=== PATIENT | male | born 1955 | race Caucasian/White ===

== ENCOUNTER 2020-03-18 07:41 | Outpatient (REF) | payer OTHER, SELFPAY | END 2020-03-18 07:42 | disposition home or self-care (01) | LOC: HO.SCI 07:41 | PROVIDERS: Visit Provider Nurse Practitioner | DX: Z13.89 Encounter for screening for other disorder (principal) ==

== ENCOUNTER 2020-04-08 09:18 | Outpatient (REF) | payer OTHER, SELFPAY ==
[2020-04-08 12:02] LABS: Basophils Percent Auto 0.5 % (0-2); Eosinophils Absolute Auto 0.2 X10*3/uL (0.0-0.4); Hematocrit 44.2 % (42-52); Hemoglobin 15.3 g/dl (14.0-18.0); Imm Gran Abs Auto 0.02 X10*3/uL (0.00-0.03); Imm Gran Pct Auto 0.3 % (0.0-0.4); Lymphocytes Absolute Auto 1.7 X10*3/uL (1.2-4.9); Mean Corpuscular HGB Conc 34.6 g/dl (31.0-36.0); Mean Corpuscular Volume 83.7 fL (80-98); Monocytes Absolute Auto 0.6 X10*3/uL (0.1-1.2); Monocytes Percent Auto 7.2 % (2-11); Neutrophils Absolute Auto 5.4 X10*3/uL (2.0-8.3); Platelet Count 348 X10*3/uL (160-400); Red Blood Count 5.28 X10*6/uL (4.60-5.80); Red Cell Distribution Width 13.2 % (11.0-16.0); White Blood Count 7.9 X10*3/uL (4.8-10.8)
[2020-04-08 12:04] LABS: MANUAL DIFF FLAG NO
[2020-04-08 13:06] LABS: Erythrocyte Sedimentation Rate 6 MM/HR (0-15)
[2020-04-13 23:16] LABS: Asperg fumigatus Precip Abs NEGATIVE (NEGATIVE); Micropoly faeni Abs NEGATIVE (NEGATIVE); Pigeon serum Abs NEGATIVE (NEGATIVE); Saccharo pora viridis Abs NEGATIVE (NEGATIVE); Thermo candidus Abs NEGATIVE (NEGATIVE); Thermoa vulgaris #1 NEGATIVE (NEGATIVE)
== END 2020-04-08 09:19 | disposition home or self-care (01) ==
LOC: HO.LAB 09:18
PROVIDERS: Visit Provider Hospitalist
DX: J45.40 Moderate persistent asthma, uncomplicated (principal); R06.00 Dyspnea, unspecified; R05 Cough; J30.9 Allergic rhinitis, unspecified
CPT/HCPCS: 36415; 82785; 85025; 85652; 86003; 86331; 86606; 86609

== ENCOUNTER 2020-04-09 09:13 | Outpatient (REF) | payer OTHER, SELFPAY ==
--- NOTE | 2020-04-09 09:30 | EMG_ITS ---
HISTORY OF PRESENT ILLNESS: This is a 65-year-old man with right lower extremity weakness for the last 7 weeks with a footdrop on walking. He has no back pain and no radicular pain. PHYSICAL EXAMINATION: On examination, he is alert and oriented with normal intellectual functions. He has moderate weakness of tibialis anterior and peroneus longus as well as greater weakness in the EDB and EHL. Reflexes symmetrical. IMPRESSION: Peroneal nerve palsy. Rule out lumbar radiculopathy. Nerve conduction EMG study: Mild to moderate compression palsy of the right peroneal nerve of neck of the fibula with moderate axonal loss. 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 MD JOHN Randhawa/ANTHONY / [id number]
== END 2020-04-09 09:14 | disposition home or self-care (01) ==
LOC: HO.NEURO 09:13
PROVIDERS: Visit Provider Nurse Practitioner
DX: M21.371 Foot drop, right foot (principal)
CPT/HCPCS: 95860; 95886; 95910

== ENCOUNTER → 2020-05-01 09:46 | Outpatient (BNVA) | payer OTHER, SELFPAY | PROVIDERS: Visit Provider Hospitalist | DX: Z76.89 Persons encountering health services in other specified circumstances (principal) ==

== ENCOUNTER 2020-10-09 11:04 | Outpatient (REF) | payer OTHER, SELFPAY ==
--- NOTE | ~2020-10-09 | XR_ITS ---
EXAMINATION: XR CHEST 2 VIEWS CLINICAL INFORMATION: Dyspnea. COMPARISON: None. TECHNIQUE: Frontal and lateral views of the chest were obtained. FINDINGS: The heart, great vessels, pulmonary vasculature and mediastinum are normal. The lungs show no focal infiltrate, effusion or pneumothorax. There is no acute osseous abnormality. There is multi-level thoracolumbar spondylosis. Orthopedic anchors are seen applied to the right humeral head. XR/XR chest 2V IMPRESSION: No active cardiopulmonary disease.
== END 2020-10-09 11:05 | disposition home or self-care (01) ==
LOC: HO.XRAY 11:04
PROVIDERS: Visit Provider Hospitalist
DX: R06.00 Dyspnea, unspecified (principal)
CPT/HCPCS: 71046

== ENCOUNTER → 2020-10-30 10:26 | Outpatient (BNVA) | payer OTHER, SELFPAY | PROVIDERS: Visit Provider Hospitalist ==

== ENCOUNTER 2021-09-04 15:58 | Outpatient (REF) | payer OTHER, SELFPAY ==
--- NOTE | 2021-09-04 17:08 | PFT_ITS ---
No test because patient was not able to perform any significant maneuvers. MD IZABELLA Bowman/ANTHONY / [id number]
== END 2021-09-04 15:59 | disposition home or self-care (01) ==
LOC: HO.RESP 15:58
PROVIDERS: PCP Internal Medicine; Visit Provider Hospitalist
DX: Z13.89 Encounter for screening for other disorder (principal)

== ENCOUNTER 2023-09-23 13:06 | Outpatient (AMB) | payer OTHER, SELFPAY ==
--- NOTE | 2023-09-23 13:27 | MHC.OFFVIS ---
Vital Signs 09/23/23 13:29 Height 5 ft 8 in Weight 200 lb BMI 30.4 Pulse 79 Pulse Source Pulse Oximeter Pulse Oximetry (%) 79 L Oxygen Delivery Method Room Air Intake Visit Reasons: Cough Nurse Technician Required: No Allergies codeine Allergy (Severe, Verified 09/23/23 13:30) Dizziness meperidine [From Demerol] Allergy (Severe, Verified 09/23/23 13:30) Dizziness HPI Comments Details: The patient is a 65-year-old gentleman who was in his usual state health until back in September 2018 when he started developing difficulty breathing. He was started on Symbicort at that point he was able to feel better and then he weaned off the medicine. He was otherwise doing well until now January 2020 when he started again developing symptoms of shortness of breath sure he went back to primary care doctor. He was again placed on Symbicort and also given singular. He has also been complaining of nasal congestion. He was placed on Flonase. His symptoms have been partially getting better. Although he still feels like is still hard time breathing. Mainly breathing in. He is also documented that he has a pulse oximeter. When he has had difficulty breathing he has noticed that he desaturated down to the low 90s. At this point he has been feeling better. He also states that he had a dropped foot primarily his right leg so therefore he went to [facility] ED where he had imaging studies. I do not have those results at this time. He will be having an EMG for his drop foot of those already feeling better. In the office he has no evidence of any fatigue with repetition of exercise. 10/30/2020 the patient is here for pulmonary follow-up visit. Overall he is doing well. He has had to use his rescue therapy about once or twice a month. The Symbicort has been very effective for him. In addition to that the singular at nighttime as well. He continues to episodes of breathlessness. We did review his chest x-ray personally in the office. Appears to have some increased crowding of the interstitial markings at the bases likely from hypo expansion. In addition to that he does have some degenerative disc disease. We did talk about the importance of stretching and also deep breathing in exercise on a regular basis. He does have needs to congestion. Has been using Yasmine in the morning and singular at nighttime. He is also rinsing with saline. The fluticasone nasal spray was not very helpful. Otherwise the patient is without any other complaints. Will have him return in 1 years time with repeat PFTs and a repeat chest x-ray. 09/23/2023 the patient is here for a pulmonary follow-up visit. The patient started developing worsening cough. He was done and the [place] and there was family members were concerned that he was coughing a lot. His cough tends to be moderate severity. Nonproductive in nature. Primarily hacky cough. He was evaluated and treated at an urgent care. He did respond well to the benzo nights. Denies any chest tightness or wheezing. Although he has had wheezing previously. Had been on Symbicort in the past although he has not using any longer. The patient has not had any recent imaging studies. Will go ahead and request a chest x-ray. Will go ahead and optimize his respiratory medication by place him on Trelegy inhaler. Hopefully the powder decrease the inflammation of the upper airway and also the lower airways. The patient also has spirometry when he returns to the office. If he has not getting any improvement with the medications he will call for an earlier assessment otherwise will follow-up in 6-8 weeks. [facility] Medical History (Updated 09/23/23 @ 13:40 by Sancho Thomas MD) Chronic allergic rhinitis Cough Dyspnea Asthma Family History Other Asthma Social History (Updated 10/30/20 @ 10:34 by Leticia Whipple Vaishnavi) Patient Tobacco Use Status: Never used Tobacco Review of Systems Const Denies night sweats ENT Denies change in voice, Denies lip swelling, Denies mouth pain, Reports nasal congestion, Reports nasal discharge and Denies tongue swelling Card Denies chest pain Resp Reports cough GI Denies abdominal pain Musc Denies no additional complaints Neuro Reports Neuro-related abnormal movements Psych Denies no additional complaints Urben/Lymph Denies easy bleeding and Denies lymphadenopathy Aller/Immun Denies lip swelling and Denies tongue swelling Physical Exam Vital Signs: Last Vital Signs Pulse 79 09/23/23 13:29 Pulse Ox 79 L 09/23/23 13:29 Oxygen Delivery Method Room Air 09/23/23 13:29 BMI result Body Mass Index 30.4 Const General: alert Neck Neck: Yes normal visual inspection, Yes full ROM and Yes no lymphadenopathy Chest Chest palpation & inspection: normal inspection of the chest Resp Effort & Inspection: Actively coughing Quality: actively coughing Auscultation: diminished lung sounds Cardio Rate: regular rate Rhythm: regular rhythm Heart sounds: S1 normal heart sound present and S2 normal heart sound present GI Palpation (GI): Soft to palpation and nontender Auscultation: normal bowel sounds Skin General skin exam: rashes and/or lesions noted Assessment & Plan Assessment & Plan (1) Chronic allergic rhinitis: Code(s): J30.9 - Allergic rhinitis, unspecified Category: Medical (2) Cough: Comment: Overall better Code(s): R05 - Cough Category: Medical Qualifiers: Cough type: chronic Qualified Code(s): R05.3 - Chronic cough (3) Dyspnea: Code(s): R06.00 - Dyspnea, unspecified Category: Medical Qualifiers: Dyspnea type: dyspnea on exertion Qualified Code(s): R06.00 - Dyspnea, unspecified (4) Asthma: Code(s): J45.909 - Unspecified asthma, uncomplicated Category: Medical Qualifiers: Asthma complication type: uncomplicated Asthma persistence: persistent Asthma severity: moderate Qualified Code(s): J45.40 - Moderate persistent asthma, uncomplicated Plan start Trelegy 200 daily YESENIA as needed start Benzonates as neeeded CXR, if not diagnostic will request a CT chest Continue Singulair at night Antihistamines as needed Continue nasal rinsing with saline. He needs to make sure that his distilled Spirometry with next vist F/U 6-8 weeks Orders: Orders XR chest 2V 09/23/23 R05.3 - Chronic cough Medications: New etyzcfbronf-snezujsri-yoniobsj 200-62.5-25 mcg (Trelegy Ellipta) 1 inh inhalation DAILY 60 ea 12RF 30 days benzonatate 200 mg PO BID PRN 60 caps 5RF cough 30 days dennedgpgao-cnghsgsvq-vaefclsz 200-62.5-25 mcg (Trelegy Ellipta) 1 inh inhalation DAILY 60 ea 12RF 30 days Coding Level of Care Code Est Pt Level 4 (05198) Diagnoses Chronic allergic rhinitis J30.9 Chronic cough R05.3 Cough type: chronic Dyspnea on exertion R06.00 Dyspnea type: dyspnea on exertion Moderate persistent asthma without complication J45.40 Asthma complication type: uncomplicated Asthma persistence: persistent Asthma severity: moderate Time Spent (min) 18
[2023-09-23 13:29] VITALS: PULSE 79; O2SAT 79; BMI 30.4
== END 2023-09-23 13:54 | disposition home or self-care (01) ==
PROVIDERS: PCP Internal Medicine; Referring Provider Internal Medicine; Visit Provider Hospitalist
DX: J30.9 Allergic rhinitis, unspecified (principal); R05.3 Chronic cough; R06.00 Dyspnea, unspecified; J45.40 Moderate persistent asthma, uncomplicated
CPT/HCPCS: 99214

== ENCOUNTER 2023-09-23 13:06 | Outpatient (REF) | payer OTHER, SELFPAY ==
--- NOTE | ~2023-09-23 | XR_ITS ---
EXAMINATION: XR CHEST CLINICAL INFORMATION: Chronic cough. COMPARISON: 10/09/2020 TECHNIQUE: 2 views of the chest were obtained. FINDINGS: There is no gross pneumothorax. Lung volumes are low. Heart size is normal. Degenerative changes in the thoracic spine. Orthopedic anchors in the right humeral head. No pleural effusion. No new focal consolidation to suggest pneumonia. XR/XR chest 2V IMPRESSION: No evidence of pneumonia.
== END 2023-09-23 13:07 | disposition home or self-care (01) ==
LOC: HO.XRAY 13:06
PROVIDERS: PCP Internal Medicine; Visit Provider Hospitalist
DX: R05.3 Chronic cough (principal)
CPT/HCPCS: 71046

== ENCOUNTER 2024-11-14 08:31 | Outpatient (AMB) | payer OTHER, SELFPAY ==
--- OUTSIDE RECORDS SUMMARY | 2024-11-14 08:36 | XMS_ITS ---
Author Name [facility] Organization Unknown History of Medication Use Medication Directions Dispensed Refills Start Date End Date Stat dicyclomine (BENTYL) 20 MG tablet Take 1 tablet (20 mg total) by mouth 4 (four) times a day. 07/23/2024 active ondansetron (ZOFRAN) 8 MG tablet Take 1 tablet (8 mg total) by mouth 3 times daily (every 8 hours) as needed for nausea or vomiting. 07/23/2024 active sucralfate (CARAFATE) 1 GM/10ML suspension Take 10 mL (1 g total) by mouth 4 (four) times a day before meals and nightly. On an empty stomach. Helps with acid reflux 07/23/2024 active Trelegy Ellipta 200-62.5-25 MCG/ACT inhaler Inhale 1 puff. 03/16/2024 active amoxicillin-clavulana te (AUGMENTIN) 875-125 MG per tablet Take 1 tablet by mouth 2 (two) times a day. 09/13/2023 09/21/2023 active alclometasone (ACLOVATE) 0.05 % ointment Apply topically 2 (two) times a day. 09/13/2023 active fluticasone (FloNASE) 50 mcg/spray nasal spray 1 spray into each nostril daily. 09/10/2023 active fluticasone (FloNASE) 50 mcg/spray nasal spray 1 spray into each nostril daily. 09/10/2023 active atorvastatin (LIPITOR) 10 MG tablet 06/26/2023 active atorvastatin (LIPITOR) 10 MG tablet 06/26/2023 active benzonatate (TESSALON) 200 MG capsule Take 1 capsule (200 mg total) by mouth 3 (three) times a day as needed for cough. 08/07/2021 active Allergies Allergen Reaction Severity Comment Documented Date Source Statu s MEPERIDINE OTHER (SEE COMMENTS)HIVES Pt reports as allergy 09/10/2023 [facility] CODEINE OTHER (SEE COMMENTS)HIVES Pt reports as allergy HHT Problems Problem Status Onset Date Problem Type Date of Resolution Source Nausea active EncounterDiagnosisAct [facility] Diarrhea, unspecified type active EncounterDiagnosisAct [facility] Gastroesophageal reflux disease without esophagitis active EncounterDiagnosisAct [facility] Allergic reaction, initial encounter active [facility]DiagnosisAct [facility] Encounters Encounter Type Encounter Reason Primary Diagnosis Location Date Ambulatory Nausea Nausea [facility] 07/23/2024 Ambulatory Rash Rash [facility] 03/27/2024 Ambulatory Other Other [facility] 09/13/2023 Ambulatory Cough Cough [facility] 09/10/2023 Ambulatory COVID-19 [facility] 02/18/2022 Ambulatory Contact with and (suspected) exposure to covid-19 [facility] 08/07/2021 Care Team Organization Name Specialty Phone Email Start Date End Da te [facility] NO PCP Primary Care 09/13/2023 [facility] 09/11/2023 08/01/2024 [facility] 09/10/2023 [facility] PCP,No Primary Care 02/18/2022 08/28/2024 [facility] NO PCP Primary Care 08/07/2021 08/07/2021
--- OUTSIDE RECORDS SUMMARY | 2024-11-14 08:36 | XMS_ITS | Clinical Summary ---
Author Organization [facility] Address [address] [place] [address] Care Team Providers Care Professor Of Sociology Name Role Phone Pcp, No Unavailable Unavailable Pcp, No Primary Care Provider Unavailabl e Allergies Active Allergy Reactions Criticality Noted Date Comments Codeine Hives Medium 08/07/2021 Codeine Other (See Comments) 09/10/2023 Pt reports as allergy Meperidine Hives Medium 08/07/2021 Meperidine Other (See Comments) 09/10/2023 Pt reports as allergy Medications benzonatate (TESSALON) 200 MG capsuleIndicati ons:Cough Take 1 capsule (200 mg total) by mouth 3 (three) times a day as needed for cough. 20 capsule 2 Active proMETHAZINE-de xtromethorphan (proMETHAZINE-D M) 6.25-15 MG/5ML syrupIndication s:Cough Take 5 mL by mouth 4 times daily (every 6 hours) as needed for cough. 120 mL 2 Active nirmatrelvir-ri tonavir (PAXLOVID EMERGENCY USE) therapy packIndications :COVID-19 Take 3 Tablets - 300 mg Nirmatrelvir (2 x 150 mg tablets) with 100 mg Ritonavir (1 x 100 mg tablet) twice daily by mouth for 5 Days. Dispense #20 Nirmatrelvir 150 mg Tablets and #10 Ritonavir 100 mg tablets. 30 tablet 2 Active albuterol (PROVENTIL HFA; VENTOLIN HFA) 108 (90 Base) MCG/ACT inhalerIndicati ons:Shortness of breath Inhale 1-2 puffs every 4 (four) hours as needed for wheezing. 1 each 1 2 Active lidocaine (XYLOCAINE) 2 % solutionIndicat ions:Sore throat Take 5 mL by mouth 4 (four) times a day as needed for mild pain or moderate pain. Gargle and spit 100 mL 2 Active Trelegy Ellipta 200-62.5-25 MCG/ACT inhaler Inhale 1 puff. 4 Active clotrimazole (LOTRIMIN) 1 % creamIndication s:Tinea corporis Apply topically 2 (two) times a day. 30 g 4 Active atorvastatin (LIPITOR) 10 MG tablet 4 Active albuterol (PROVENTIL HFA; VENTOLIN HFA) 108 (90 Base) MCG/ACT inhalerIndicati ons:Viral URI with cough Inhale 2 puffs 4 times daily (every 6 hours) as needed for wheezing. 1 each 4 Active benzonatate (TESSALON) 200 MG capsuleIndicati ons:Viral URI with cough Take 1 capsule (200 mg total) by mouth 3 (three) times a day as needed for cough. 30 capsule 4 Active fluticasone (FloNASE) 50 mcg/spray nasal sprayIndication s:Viral URI with cough 1 spray into each nostril daily. 1 each 4 Active alclometasone (ACLOVATE) 0.05 % ointmentIndicat ions:Allergic reaction, initial encounter Apply topically 2 (two) times a day. 30 g 4 Active dicyclomine (BENTYL) 20 MG tabletIndicatio ns:Diarrhea, unspecified type Take 1 tablet (20 mg total) by mouth 4 (four) times a day. 20 tablet 5 Active ondansetron (ZOFRAN) 8 MG tabletIndicatio ns:Nausea Take 1 tablet (8 mg total) by mouth 3 times daily (every 8 hours) as needed for nausea or vomiting. 15 tablet 5 Active sucralfate (CARAFATE) 1 GM/10ML suspensionIndic ations:Gastroes ophageal reflux disease without esophagitis Take 10 mL (1 g total) by mouth 4 (four) times a day before meals and nightly. On an empty stomach. Helps with acid reflux 420 mL Active Active Problems No known active problems Social History Tobacco Use Types Packs/Day Years Used Date Smoking Tobacco: Never Smokeless Tobacco: Never Sex and Gender Information Value Date Recorded Sex Assigned at Not on file Legal Sex Male 11:55 AM EST Gender Identity Not on file Sexual Orientation Not on file Last Filed Vital Signs Vital Sign Reading Time Taken Comments Blood Pressure 138/86 07/23/2024 9:33 AM EDT Pulse 108 07/23/2024 9:33 AM EDT Temperature 36.9 C (98.4 F) 07/23/2024 9:33 AM EDT Respiratory Rate 16 03/27/2024 5:47 PM EST Oxygen Saturation 95% 07/23/2024 9:33 AM EDT Inhaled Oxygen Concentration - - Weight 90.7 kg (200 lb) 02/18/2022 3:09 PM EDT Height 172.7 cm (5' 8 ) 02/18/2022 3:09 PM EDT Body Mass Index 30.41 02/18/2022 3:09 PM EDT Plan of Treatment Health Maintenance Due Date Last Done Comments Hepatitis C Virus Screening 1955 DTaP/Tdap/Td Vaccines (1 - Tdap) 02/27/1976 Colonoscopy 2002 Pneumococcal Vaccines 50+ (1 of 1 - PCV) 2007 Zoster (Shingles) Vaccine (1 of 2) 2007 COVID-19 Vaccine (3 - season) 2024 08/19/2020, 07/20/2020 Influenza Vaccine 12/14/2024 03/15/2024, , 03/30/2022, Additional history exists RSV Vaccine 60 years and older and Patients (1 - 1-dose 75+ series) 02/27/2032 Hepatitis B Vaccines Aged Out No long er eligible based on patient's age to complete this topic Insurance [employer] Care Teams Professor Of Sociology Relationship Specialty Start Date End Date Pcp, No PCP - General General Medicine 07/23/24 Pcp, No General Medicine 09/10/23
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
[2024-11-14 08:44] VITALS: BP 132/72; PULSE 73; O2SAT 97; BMI 31.3
--- NOTE | 2024-11-14 08:44 | A.OFFVIS_ITS ---
Vital Signs 11/14/24 08:44 Height 5 ft 8 in Weight 206 lb 2.115 oz BMI 31.3 BP 132/72 Blood Pressure Location Lt brachial Position Sitting Pulse 73 Pulse Source Pulse Oximeter Pulse Oximetry (%) 97 Oxygen Delivery Method Room Air Intake Visit Reasons: Cough Grain Spouter Required: No Accompanied by: Self / Same As Patient Allergies codeine Allergy (Severe, Verified 11/14/24 08:48) Dizziness meperidine (From Demerol) Allergy (Severe, Verified 11/14/24 08:48) Dizziness HPI Comments Details: The patient is a 69-year-old gentleman who was in his usual state health until back in September 2018 when he started developing difficulty breathing. He was started on Symbicort at that point he was able to feel better and then he weaned off the medicine. He was otherwise doing well until now January 2020 when he started again developing symptoms of shortness of breath sure he went back to primary care doctor. He was again placed on Symbicort and also given singular. He has also been complaining of nasal congestion. He was placed on Flonase. His symptoms have been partially getting better. Although he still feels like is still hard time breathing. Mainly breathing in. He is also documented that he has a pulse oximeter. When he has had difficulty breathing he has noticed that he desaturated down to the low 90s. At this point he has been feeling better. He also states that he had a dropped foot primarily his right leg so therefore he went to [facility] ED where he had imaging studies. I do not have those results at this time. He will be having an EMG for his drop foot of those already feeling better. In the office he has no evidence of any fat igue with repetition of exercise. 10/30/2020 the patient is here for pulmonary follow-up visit. Overall he is doing well. He has had to use his rescue therapy about once or twice a month. The Symbicort has been very effective for him. In addition to that the singular at nighttime as well. He continues to episodes of breathlessness. We did review his chest x-ray personally in the office. Appears to have some increased crowding of the interstitial markings at the bases likely from hypo expansion. In addition to that he does have some degenerative disc disease. We did talk about the importance of stretching and also deep breathing in exercise on a regular basis. He does have needs to congestion. Has been using Yasmine in the morning and singular at nighttime. He is also rinsing with saline. The fluticasone nasal spray was not very helpful. Otherwise the patient is without any other complaints. Will have him return in 1 years time with repeat PFTs and a repeat chest x-ray. 09/23/2023 the patient is here for a pulmonary follow-up visit. The patient started developing worsening cough. He was done and the [place] and there was family members were concerned that he was coughing a lot. His cough tends to be moderate severity. Nonproductive in nature. Primarily hacky cough. He was evaluated and treated at an urgent care. He did respond well to the benzo nights. Denies any chest tightness or wheezing. Although he has had wheezing previously. Had been on Symbicort in the past although he has not using any longer. The patient has not had any recent imaging studies. Will go ahead and request a chest x-ray. Will go ahead and optimize his respiratory medication by place him on Trelegy inhaler. Hopefully the powder decrease the inflammation of the upper airway and also the lower airways. The patient also has spirometry when he returns to the office. If he has not getting any improvement with the medications he will call for an earlier assessment otherwise will follow-up in 6-8 weeks. 11/14/2024 the patient is here for pulmonary follow-up visit. Overall he is doing okay. His cough is getting worse. He does respond well to Trelegy. He also d etected Benzonate with good response. He does rinse and gargle after using the Trelegy. He has been having some issues with hoarseness that I could appreciate today. Also his cough is a little bit more bothersome and is moderate in severity and it is nonproductive in nature. I wonder if the hoarseness and the cough is related. He has not had a laryngoscopy. We will go ahead and refer him to ENT. In the meantime we will continue with current respiratory therapy. He responds well to the prednisone is also in a script for that as well. Does take allergy medications. He stopped taking the Singulair which is okay. Last chest x-ray was personally viewed by me back in September 2023 demonstrated no acute disease. He does have underlying degenerative changes to his back and also shoulder. We will give him another x-ray order in case his cough still persists after the additional medications. Patient will return in a year. If he has any issues prior to this she will call for an earlier assessment. [facility] Medical History (Updated 11/14/24 @ 09:06 by Sancho Thomas MD) Hoarse Chronic allergic rhinitis Cough Dyspnea Asthma Family History Other Asthma Social History Patient Tobacco Use Status: Never used Tobacco Review of Systems Const Denies night sweats ENT Denies change in voice, Reports hoarseness, Denies lip swelling, Denies mouth pain, Reports nasal congestion, Reports nasal discharge and Denies tongue swelling Card Denies chest pain Resp Reports cough GI Denies abdominal pain Musc Denies no additional complaints Neuro Reports Neuro-related abnormal movements Psych Denies no additional complaints Ruben/Lymph Denies easy bleeding and Denies lymphadenopathy Aller/Immun Denies lip swelling and Denies tongue swelling Physical Exam Vital Signs: Last Vital Signs Pulse 73 11/14/24 08:44 BP 132/72 11/14/24 08:44 Pulse Ox 97 11/14/24 08:44 Oxygen Delivery Method Room Air 11/14/24 08:44 BMI result Body Mass Index 31.3 Const General: alert Neck Neck: Yes normal visual inspection, Yes full ROM and Yes no lymphadenopathy Chest Chest palpation & inspection: normal inspection of the chest Resp Effort & Inspection: Actively coughing Quality: actively coughing Auscultation: diminished lung sounds Cardio Rate: regular rate Rhythm: regular rhythm Heart sounds: S1 normal heart sound present and S2 normal heart sound present GI Palpation (GI): Soft to palpation and nontender Auscultation: normal bowel sounds Skin General skin exam: rashes and/or lesions noted Assessment & Plan Assessment & Plan (1) Chronic allergic rhinitis: Code(s): J30.9 - Allergic rhinitis, unspecified Category: Medical (2) Cough: Comment: Overall better Code(s): R05 - Cough Category: Medical Qualifiers: Cough type: chronic Qualified Code(s): R05.3 - Chronic cough (3) Dyspnea: Code(s): R06.00 - Dyspnea, unspecified Category: Medical Qualifiers: Dyspnea type: dyspnea on exertion Qualified Code(s): R06.00 - Dyspnea, unspecified (4) Asthma: Code(s): J45.909 - Unspecified asthma, uncomplicated Category: Medical Qualifiers: Asthma complication type: uncomplicated Asthma persistence: persistent Asthma severity: moderate Qualified Code(s): J45.40 - Moderate persistent asthma, uncomplicated (5) Hoarse: Code(s): R49.0 - Dysphonia Category: Medical Plan Trelegy 200 daily YESENIA as needed Benzonates as neeeded CXR stopped Singulair at night Antihistamines as needed Continue nasal rinsing with saline. He needs to make sure that his distilled ENT referral for laryngoscopy F/U 8-12 months Orders: Orders XR chest 2V Today R05.3 - Chronic cough Referrals Ear/Nose/Throat Referral R49.0 - Dysphonia Medications: New cetirizine (Zyrtec) 10 mg PO DAILY 90 tabs 3RF 90 days benzonatate 200 mg PO BID PRN 60 caps 11RF cough 30 days Changed From albuterol sulfate 90 mcg/actuation inhalation To albuterol sulfate 90 mcg/actuation 2 inhalations inhalation Q6H PRN 8.5 grams 11RF shortness of breath or wheezing 30 days Refilled [id number]-zevloctyr-ljilmnzg 200-62.5-25 mcg (Trelegy Ellipta) 1 inh inhalation DAILY 60 ea 12RF 30 days Coding Level of Care Code Est Pt Level 4 (41289) Diagnoses Chronic allergic rhinitis J30.9 Chronic cough R05.3 Cough type: chronic Dyspnea on exertion R06.00 Dyspnea type: dyspnea on exertion Moderate persistent asthma without complication J45.40 Asthma complication type: uncomplicated Asthma persistence: persistent Asthma severity: moderate Hoarse R49.0 Time Spent (min) 16
== END 2024-11-14 09:07 | disposition home or self-care (01) ==
PROVIDERS: PCP Internal Medicine; Visit Provider Hospitalist
DX: J30.9 Allergic rhinitis, unspecified (principal); R05.3 Chronic cough; R06.00 Dyspnea, unspecified; J45.40 Moderate persistent asthma, uncomplicated; R49.0 Dysphonia
CPT/HCPCS: 99214

== ENCOUNTER 2025-03-29 10:25 | Outpatient (AMB) | payer OTHER, SELFPAY ==
[2025-03-29 10:27] VITALS: BP 148/80; PULSE 92; O2SAT 96; BMI 31.8
--- NOTE | 2025-03-29 10:27 | A.OFFVIS_ITS ---
Vital Signs 03/29/25 10:27 Height 5 ft 8 in Weight 209 lb BMI 31.8 BP 148/80 H Blood Pressure Location Lt brachial Position Sitting Pulse 92 Pulse Source Pulse Oximeter Pulse Oximetry (%) 96 Oxygen Delivery Method Room Air Intake Visit Reasons: Unrelenting cough Allergies codeine Allergy (Severe, Verified 11/14/24 08:48) Dizziness meperidine (From Demerol) Allergy (Severe, Verified 11/14/24 08:48) Dizziness HPI Comments Details: The patient is a 70-year-old gentleman who was in his usual state health until back in September 2018 when he started developing difficulty breathing. He was started on Symbicort at that point he was able to feel better and then he weaned off the medicine. He was otherwise doing well until now January 2020 when he started again developing symptoms of shortness of breath sure he went back to primary care doctor. He was again placed on Symbicort and also given singular. He has also been complaining of nasal congestion. He was placed on Flonase. His symptoms have been partially getting better. Although he still feels like is still hard time breathing. Mainly breathing in. He is also documented that he has a pulse oximeter. When he has had difficulty breathing he has noticed that he desaturated down to the low 90s. At this point he has been feeling better. He also states that he had a dropped foot primarily his right leg so therefore he went to [facility] ED where he had imaging studies. I do not have those results at this time. He will be having an EMG for his drop foot of those already feeling better. In the office he has no evidence of any fatigue with repetition of exercise. 10/30/2020 the patient is here for pulmonary follow-up visit. Overall he is doing well. He has had to use his rescue therapy about once or twice a month. The Symbicort has been very effective for him. In addition to that the singular at nighttime as well. He continues to episodes of breathlessness. We did review his chest x-ray personally in the office. Appears to have some increased crowding of the interstitial markings at the bases likely from hypo expansion. In addition to that he does have some degenerative disc disease. We did talk about the importance of stretching and also deep breathing in exercise on a regular basis. He does have needs to congestion. Has been using Yasmine in the morning and singular at nighttime. He is also rinsing with saline. The fluticasone nasal spray was not very helpful. Otherwise the patient is without any other complaints. Will have him return in 1 years time with repeat PFTs and a repeat chest x-ray. 09/23/2023 the patient is here for a pulmonary follow-up visit. The patient started developing worsening cough. He was done and the [place] and there was family members were concerned that he was coughing a lot. His cough tends to be moderate severity. Nonproductive in nature. Primarily hacky cough. He was evaluated and treated at an urgent care. He did respond well to the benzo nights. Denies any chest tightness or wheezing. Although he has had wheezing previously. Had been on Symbicort in the past although he has not using any longer. The patient has not had any recent imaging studies. Will go ahead and request a chest x-ray. Will go ahead and optimize his respiratory medication by place him on Trelegy inhaler. Hopefully the powder decrease the inflammation of the upper airway and also the lower airways. The patient also has spirometry when he returns to the office. If he has not getting any improvement with the medications he will call for an earlier assessment otherwise will follow-up in 6-8 weeks. 11/14/2024 the patient is here for pulmonary follow-up visit. Overall he is doing okay. His cough is getting worse. He does respond well to Trelegy. He also detected Benzonate with good response. He does rinse and gargle after using the Trelegy. He has been having some issues with hoarseness that I could appreciate today. Also his cough is a little bit more bothersome and is moderate in severity and it is nonproductive in nature. I wonder if the hoarseness and the cough is related. He has not had a laryngoscopy. We will go ahead and refer him to ENT. In the meantime we will continue with current respiratory therapy. He responds well to the prednisone is also in a script for that as well. Does take allergy medications. He stopped taking the Singulair which is okay. Last chest x-ray was personally viewed by me back in September 2023 demonstrated no acute disease. He does have underlying degenerative changes to his back and also shoulder. We will give him another x-ray order in case his cough still persists after the additional medications. Patient will return in a year. If he has any issues prior to this she will call for an earlier assessment. 03/29/2025 the patient is here for sick visit. She started developing worsening cough for the last few weeks. He was on the [place]. He was taking his inhaler and he did have a coughing typically productive in nature. The patient was seen by other family and friends who were in the medical field then recommend that he needs to seek medical care. He started developing some left- sided burning sensation suggesting of gastritis or esophagitis and he started taking Pepcid with some partial relief with the symptoms of these he did require a good amount of it. He continues with his respiratory therapy but he is concerned that his cough is persistent. Office note he did see ENT prior to getting his worsening cough in his ENT did undergo laryngoscopy demonstrating no acute issues with the vocal cords. He still has some degree of hoarseness. On exam he does have some crackles left more than right and therefore will going to have him get an x-ray and treat him for pneumonia. The patient also will undergo blood work including cardiac enzymes and an EKG to assess for an EKG changes. He understands that stomach upset sometimes can be symptoms of underlying heart disease. So therefore he needs to be cautious that if he does develop the symptoms again he needs to seek urgent medical advice. For now will also start him on a PPI to help him with any potential GI symptoms. [facility] Medical History (Updated 03/29/25 @ 10:52 by Sancho Thomas MD) Chest discomfort Hoarse Chronic allergic rhinitis Cough Dyspnea Asthma Family History Other Asthma Social History Patient Tobacco Use Status: Never used Tobacco Review of Systems Const Denies night sweats ENT Denies change in voice, Reports hoarseness, Denies lip swelling, Denies mouth pain, Reports nasal congestion, Reports nasal discharge and Denies tongue swelling Card Reports chest pain Resp Reports chest congestion and Reports cough GI Reports dyspepsia and Reports heartburn Musc Denies no additional complaints Neuro Reports Neuro-related abnormal movements Psych Denies no additional complaints Ruben/Lymph Denies easy bleeding and Denies lymphadenopathy Aller/Immun Denies lip swelling and Denies tongue swelling Physical Exam Vital Signs: Last Vital Signs Pulse 92 03/29/25 10:27 BP 148/80 H 03/29/25 10:27 Pulse Ox 96 03/29/25 10:27 Oxygen Delivery Method Room Air 03/29/25 10:27 BMI result Body Mass Index 31.8 Const General: alert Neck Neck: Yes normal visual inspection, Yes full ROM and Yes no lymphadenopathy Chest Chest palpation & inspection: normal inspection of the chest Resp Effort & Inspection: Actively coughing Quality: actively coughing Auscultation: rales and diminished lung sounds Cardio Rate: regular rate Rhythm: regular rhythm Heart sounds: S1 normal heart sound present and S2 normal heart sound present GI Palpation (GI): Soft to palpation and nontender Auscultation: normal bowel sounds Skin General skin exam: rashes and/or lesions noted Assessment & Plan Assessment & Plan (1) Chronic allergic rhinitis: Code(s): J30.9 - Allergic rhinitis, unspecified Category: Medical (2) Cough: Comment: Overall better Code(s): R05 - Cough Category: Medical Qualifiers: Cough type: chronic Qualified Code(s): R05.3 - Chronic cough (3) Dyspnea: Code(s): R06.00 - Dyspnea, unspecified Category: Medical Qualifiers: Dyspnea type: dyspnea on exertion Qualified Code(s): R06.00 - Dyspnea, unspecified (4) Asthma: Code(s): J45.909 - Unspecified asthma, uncomplicated Category: Medical Qualifiers: Asthma complication type: uncomplicated Asthma persistence: persistent Asthma severity: moderate Qualified Code(s): J45.40 - Moderate persistent asthma, uncomplicated (5) Hoarse: Code(s): R49.0 - Dysphonia Category: Medical (6) Chest discomfort: Code(s): R07.89 - Other chest pain Category: Medical Plan Start Vantin/Doxycycline Start PPI CXR, normal EKG, normal Bloodwork Trelegy 200 daily YESENIA as needed Benzonates as neeeded CXR stopped Singulair at night Antihistamines as needed Continue nasal rinsing with saline. He needs to make sure that his distilled ENT normal laryngoscopy as per the pt F/U 2-3 months Orders: Orders Basic Metabolic Panel 03/29/25 R05.3 - Chronic cough, R07.89 - Other chest pain Lipase 03/29/25 R05.3 - Chronic cough, R07.89 - Other chest pain Troponin-I High Sensitivity 03/29/25 R05.3 - Chronic cough, R07.89 - Other chest pain Complete Blood Count Auto Diff 03/29/25 R05.3 - Chronic cough, R07.89 - Other chest pain Erythrocyte Sedimentation Rate 03/29/25 R05.3 - Chronic cough, R07.89 - Other chest pain Liver Panel 03/29/25 R05.3 - Chronic cough, R0.89 - Other chest pain XR chest 2V 03/29/25 R05.3 - Chronic cough, R07. - Other chest pain ECG 12 lead EKG 03/29/25 J44.9 - Chronic obstructive pulmonary disease, unspecified, R05.3 - Chronic cough, R0 - Other chest pain Medications: New doxycycline hyclate 100 mg PO BID 20 caps 0RF 10 days cefpodoxime must administer with a meal/food 200 mg PO BID 20 tabs 0RF omeprazole 40 mg PO DAILY 30 caps 6RF 30 days Coding Level of Care Code Est Pt Level 4 (38992) Complex EM visit Add On G2211 Diagnoses Chronic allergic rhinitis J30.9 Chronic cough R05.3 Cough type: chronic Dyspnea on exertion R06.00 Dyspnea type: dyspnea on exertion Moderate persistent asthma without complication J45.40 Asthma complication type: uncomplicated Asthma persistence: persistent Asthma severity: moderate Hoarse R49.0 Chest discomfort R07.89 Time Spent (min) 17
--- OUTSIDE RECORDS SUMMARY | 2025-03-29 13:11 | XMS_ITS | Clinical Summary ---
Author Organization [facility] Address [address] [place] [address] Care Team Providers Care Photography Spotter Name Role Phone Pcp, No Unavailable Unavailable [...] Helps with acid reflux 420 mL Active cetirizine (ZyrTEC) 10 MG tablet Take 10 mg by mouth. FOR 90 DAYS 5 Active Active Problems Problem Noted Date Diagnosed Date Class 1 obesity 01/23/2025 Asthma 09/27/2024 Encounters Date Type Department Care Team Description 01/29/2025 8:30 AM EDT Office Visit [facility] [address], [place] [address] Robert King MD Dysphonia (Primary Dx); Chronic cough; Vocal cord edema from Last 3 Months Immunizations Immunization Administration Dates Next Due Influenza (AFLURIA/FLUZONE) Inactivated/Split Quadrivalent with Preservative IM 03/12/2020,03/01/2018 Influenza High-Dose Trivalen t,(FLUZONE HIGH-DOSE), Perservative Free IM 0.5 mL 65 years and older 03/30/2022 Influenza, Trivalent (FLUARI X, AFLURIA, FLULAVAL, FLUZONE) Preservative Free IM 03/15/2024,03/04/2023 Pneumococcal Conjugate 13-Valent 03/30/2022 Zoster Vaccine Live/Attenuated (Zostavax) 2016 Social History Tobacco Use Types Packs/Day Years Used Date Smoking Tobacco: Never Smokeless Tobacco: Never Tobacco Cessation:Counseling Given: Not Answered Sex and Gender Information Value Date Recorded [...] EDT Inhaled Oxygen Concentration - - Weight 93.4 kg (206 lb) 01/29/2025 8:24 AM EDT Height 172.7 cm (5' 8 ) 01/29/2025 8:24 AM EDT Body Mass Index 31.32 01/29/2025 8:24 AM EDT Plan of Treatment Health Maintenance Due Date Last Done Comments Advance Care Planning 1955 Hepatitis C Virus Screening 1955 DTaP/Tdap/Td Vaccines (1 - Tdap) 02/27/1976 RSV Vaccine 50 years and older and Patients (1 - Risk 50-74 years 1-dose series) 2007 Zoster (Shingles) Vaccine (2 of 3) 12/22/2016 10/27/2016 Pneumococcal Vaccines 50+ (2 of 2 - PPSV23, PCV20, or PCV21) 05/25/2022 03/30/2022 Influenza Vaccine 12/14/2024 03/15/2024, , 03/30/2022, Additional history exists COVID-19 Vaccine ( - season) 2025 08/19/2020, 07/20/2020 Colonoscopy 09/27/2034 09/27/2024 Hepatitis B Vaccines Aged Out No long er eligible based on patient's age to complete this [place] [id number] [facility] Care Teams Photography Spotter Relationship Specialty Start Date End Date Pcp, No PCP - General General Medicine 07/23/24 Pcp, No General Medicine 09/10/23
== END 2025-03-29 10:58 | disposition home or self-care (01) ==
LOC: HO.HPS 10:25
PROVIDERS: PCP Internal Medicine; Visit Provider Hospitalist
DX: J30.9 Allergic rhinitis, unspecified (principal); R05.3 Chronic cough; R06.00 Dyspnea, unspecified; J45.40 Moderate persistent asthma, uncomplicated; R49.0 Dysphonia; R07.89 Other chest pain
CPT/HCPCS: 99214

== ENCOUNTER → 2025-03-29 10:25 | Outpatient (REF) | payer OTHER, SELFPAY ==
--- NOTE | ~2025-03-29 | XR_ITS ---
EXAMINATION: XR CHEST CLINICAL INFORMATION: R07.89 - Other chest pain COMPARISON: September 23, 2023. TECHNIQUE: PA and lateral views. FINDINGS: Poor inspiration. Mild pulmonary reticular pattern. No consolidation, pleural effusion or pneumothorax. Cardiomediastinal silhouette size is normal. Multilevel thoracolumbar spondylosis. Osteopenia versus osteoporosis. Degenerative changes in the right shoulder. Radiopaque anchors in the right humeral head likely related to prior rotator cuff tendon tear repair. Degenerative changes in the left shoulder. XR/XR chest 2V IMPRESSION: No acute airspace disease. Electronically signed by: Red Blackman MD 03/29/2025 12:42 PM EST
--- NOTE | 2025-03-29 11:07 | ECG_ITS ---
Test Reason : COPD Blood Pressure : */* mmHG Vent. Rate : 66 BPM Atrial Rate : 66 BPM P-R Int : 176 ms QRS Dur : 92 ms QT Int : 376 ms P-R-T Axes : 65 3 23 degrees QTcB Int : 394 ms Normal sinus rhythm Normal ECG No previous ECGs available Referred By: Sancho Thomas Electronically Signed By: QING ESCUDERO MD
[2025-03-29 11:27] LABS: MANUAL DIFF FLAG NO
[2025-03-29 12:42] LABS: Hematocrit 44.5 % (42.0-52.0); Hemoglobin 15.8 g/dl (14.0-18.0); Imm Gran Abs Auto 0.04 X10*3/uL (0.00-0.03); Imm Gran Pct Auto 0.4 % (0.0-0.4); Lymphocytes Absolute Auto 1.7 X10*3/uL (1.2-4.9); Mean Corpuscular HGB Conc 35.5 g/dl (31.0-36.0); Mean Corpuscular Hemoglobin 29.6 pg (27.0-33.0); Mean Corpuscular Volume 83.5 fL (80.0-98.0); NRBC Abs Auto 0.000 X10*3/uL (0.0-0.012); NRBC Pct Auto 0.0 /100WBC (0.0-0.2); Platelet Count 347 X10*3/uL (160-400); Red Blood Count 5.33 X10*6/uL (4.60-5.80); White Blood Count 9.2 X10*3/uL (4.8-10.8)
[2025-03-29 13:37] LABS: Alanine Aminotransferase 37 U/L (0-40); Albumin Level 4.6 g/dL (3.5-5.0); Alkaline Phosphatase 56 U/L (39-117); Anion Gap 13 (12-20); Aspartate Amino Transferase 33 U/L (5-37); Blood Urea Nitrogen 12 mg/dL (9-16); Calcium 9.9 mg/dL (8.4-10.2); Carbon Dioxide 25 mmol/L (22-29); Chloride 104 mmol/L (96-108); Estimated Glomerular Filt Rate > 60; Lipase 25 U/L (8-78); Potassium 4.0 mmol/L (3.3-5.1); Sodium 138 mmol/L (135-145); Total Protein 7.3 g/dL (6.5-8.0)
[2025-03-29 13:46] LABS: Troponin-I High Sensitivity < 2.7 ng/L (<3.5-35.0)
== END ==
LOC: HO.CARD 10:25
PROVIDERS: PCP Internal Medicine; Visit Provider Hospitalist
DX: J45.40 Moderate persistent asthma, uncomplicated (principal); J30.9 Allergic rhinitis, unspecified; R49.0 Dysphonia; R06.00 Dyspnea, unspecified
CPT/HCPCS: 36415; 71046; 80048; 80076; 83690; 84484; 85025; 85652; 93005

== ENCOUNTER → 2025-03-29 11:07 | Outpatient (BNV) | payer OTHER, SELFPAY | PROVIDERS: PCP Internal Medicine; Visit Provider Internal Medicine Cardiovascular Disease | DX: J44.9 Chronic obstructive pulmonary disease, unspecified (principal) | CPT/HCPCS: 93010 ==

== ENCOUNTER → 2025-03-29 11:26 | Outpatient (BNV) | payer OTHER, SELFPAY | PROVIDERS: PCP Internal Medicine; Visit Provider Radiology Diagnostic Radiology | DX: R07.89 Other chest pain (principal) | CPT/HCPCS: 71046 ==